=== PATIENT | female | born 1980 ===

== ENCOUNTER 2016-11-25 13:03 | Emergency (ER) | payer OTHER ==
[2016-11-25 13:03] VITALS: BMI 25.2
[2016-11-25 13:26] VITALS: BP 116/82; PULSE 98; RESP 20; TEMP 98.4; O2SAT 100
[2016-11-25] MEDS ORDERED: Sodium Chloride 0.9% 1,000 ML IV STA (13:50)
[2016-11-25 14:23] LABS: VENOUS BLOOD GAS BASE EXCESS 1.8 mmol/L (0.0-2.0); VENOUS BLOOD GAS PCO2 45 mmHg (40-60); VENOUS BLOOD PH 7.39 (7.32-7.43)
[2016-11-25 14:25] LABS: BASO % 0.2 % (0.0-2.0); EOS % 0.4 % (0.0-4.0); HEMATOCRIT 32.4 % (34.0-47.0); LYMPH # 2.1 K/uL (1.0-4.3); LYMPH % 20.6 % (20.0-40.0); MEAN CELL VOLUME 84.3 fl (81.0-99.0); MEAN CORPUSCULAR HEMOGLOBIN 27.5 pg (27.0-31.0); MEAN CORPUSCULAR HGB CONC 32.6 g/dL (33.0-37.0); MEAN PLATELET VOLUME 7.6 fl (7.2-11.7); MONO # 0.5 K/uL (0.0-0.8); MONO % 4.5 % (0.0-10.0); NEUT # 7.7 K/uL (1.8-7.0); NEUT % 74.3 % (50.0-75.0); NRBC % 0.1 % (0.0-0.0); RED CELL DISTRIBUTION WIDTH 12.9 % (11.5-14.5); WHITE BLOOD COUNT 10.3 K/uL (4.8-10.8)
[2016-11-25 14:30] LABS: ALKALINE PHOSPHATASE 138 U/L (38-126); ALT/SGPT 41 U/L (9-52); AST/SGOT 30 U/L (14-36); BILIRUBIN,TOTAL 0.3 mg/dl (0.2-1.3); BLOOD UREA NITROGEN 6 mg/dl (7-17); CARBON DIOXIDE 22 mmol/L (22-30); CHLORIDE 106 mmol/L (98-107); GFR AFRICAN-AMERICAN > 60; GLUCOSE,RANDOM 94 mg/dL (65-105); LIPASE 24 U/L (23-300); POTASSIUM 3.9 MMOL/L (3.6-5.0); RBC URINE 1 /hpf (0-3); SODIUM 141 mmol/l (132-148); TOTAL PROTEIN 7.2 G/DL (6.3-8.2); URINE BILIRUBIN SMALL (NEGATIVE); URINE BLOOD NEGATIVE (NEGATIVE); URINE COLOR YELLOW (YELLOW); URINE GLUCOSE (UA) NEG (Normal); URINE KETONE NEGATIVE (NEGATIVE); URINE LEUKOCYTE ESTERASE NEG Leu/uL (Negative); URINE PROTEIN NEGATIVE (NEGATIVE); URINE UROBILINOGEN 0.2-1.0 mg/dL (0.2-1.0); WBC URINE 1 /hpf (0-5)
--- NOTE | 2016-11-25 14:52 | ED PDOC ---
- Laboratory Results Result Diagrams: 11/25/16 14:15 11/25/16 14:15 - ECG O2 Sat by Pulse Oximetry: 100 Medical Decision Making Medical Decision Making: Time: 1430 Patient signed out by pending re-evaluation Labs demonstrate anemia, which is chronic c/w previous visits. MARLEY Sullivan (sp?) covering for Dr Aguillon and reviewed recent colonoscopy/ endoscopy. Pt has hemorrhoid, but otherwise no significant findings. Can be seen in office early next week. MARLEY Way as well. Reviewed previous charts, including previous CTs. Pt having pain but this is ongoing for a month, since recent surgery for ovarian cysts. Nausea as well. Symptomatic treatment for now. DW pt findings and plan of care. Scribe Attestation: Documented by Kia Hendrix acting as a scribe for Dixie Ann MD MD Scribe Attestation: All medical record entries made by the Scribe were at my direction and personally dictated by me. I have reviewed the chart and agree that the record accurately reflects my personal performance of the history, physical exam, medical decision making, and the department course for this patient. I have also personally directed, reviewed, and agree with the discharge instructions and disposition. Disposition - Clinical Impression Clinical Impression: Abdominal pain - POA Present On Arrival: None - Disposition Referrals: Henna PERSON,MD Ascenc[facility] [Medical Doctor] - 11/28/16 Disposition: Routine/Home Disposition Time: 15:45 Condition: STABLE Additional Instructions: BLAND DIET WITH PLENTY OF HYDRATING FLUIDS FOLLOW UP WITH DR AGUILLON EARLY NEXT WEEK Prescriptions: Dicyclomine [Bentyl] 20 mg PO BID PRN #30 tab PRN Reason: abdominal pain Saccharomyces Boulardi [Florastor] 500 mg PO BID #28 cap Ondansetron [Zofran] 4 mg PO Q8H PRN #30 tab PRN Reason: Nausea/Vomiting Instructions: Acute Abdominal Pain (ED), Syncope (ED), Rectal Bleeding (ED) Forms: [facility] School/Work Excuse
--- NOTE | 2016-11-26 10:54 | CARD ---
APPROVED REPORT EKG Measurement Heart [id number] <Conclusion> Sinus rhythm with marked sinus arrhythmia Otherwise normal ECG
== END 2016-11-25 16:23 | disposition home or self-care (01) ==
LOC: H.ER 13:03
DX: R10.9 Unspecified abdominal pain (principal)

== ENCOUNTER 2018-04-16 17:54 | Emergency (ER) | payer OTHER ==
[2018-04-16 19:11] VITALS: BMI 27.6
[2018-04-16] MEDS ORDERED: Betamethasone Soluspan 30 mg/5mL Inj Susp IM ONE (19:45)
--- NOTE | 2018-04-16 21:59 | OBDCSUM ---
Datetime: 04/16/2018 20:22 Discharged to, Provider: Home Follow up at, Provider: Primary [facility] Disch Instr Activity: Normal activity Disch Instr Diet: Regular Discharge Instructions, Provider: Routine instructions given Discharge Time: 04/16/2018 20:22 Follow up in weeks, Provider: Call and make appointment Disch Referrals: None Discharge Diagnosis Prov Other: Celestone administration for severe allergies
--- NOTE | 2018-04-16 21:59 | OBHP ---
Datetime: 04/16/2018 20:42 IP Adm Impression: , intrauterine IP Admit Plan: Observation/Evaluation; Discharge home Admit Comment, IP Provider: 37 yo at 21 wks w/ EDC 08/27/2018 by u/s who was sent from [facility], Dr. Treadwell, for a steroid injection for severe allergies. Pt reports that she gets a steroid injec tion every 4 months for severe allergies for the last 4 years. Pt reports that she gets bad sinus pr essure, INFANTE's and itch. Pt reports that her housekeeping manager was not comfortable giving her the steroid dose . Pt receives PN care w/ Dr. Purdy. PMH: Severe allergies PSH: L/s rt ov cystectomy 2016 Meds: singulair 10 mg daily PNVs All: amoxicillin and keflex cause hives and itch latex causes throat closes Soc hx: pt denies tobacco, alcohol, and illicit drug use [facility] [employer] Specialist hx: 14 x reg, denies STDs, +HPV w/ pap w/ this OB hx: 2000 SAB, no D_C 2000 , male, 6#7 at 36 wks, PTL PE: AFVSS Gen'l: Pt appears comfortable sitting up in bed A/P: 37 yo at 21 wks sent to L_D for Celestone shot for severe allergies Celestone shot given. Pt to f/u w/ Dr. Bear and housekeeping manager. General - PN: Normal FHR - Baseline A Provider: 130's EGA AdmitDate IP: 21.0 Vital Signs Provider: Reviewed IP Chief Complaint: Other
== END 2018-04-16 20:22 | disposition home or self-care (01) ==
LOC: H.EROB2 17:54
DX: O26.92 Pregnancy related conditions, unspecified, second trimester (principal); T78.40XA Allergy, unspecified, initial encounter; Z3A.21 21 weeks gestation of pregnancy
CPT/HCPCS: 96372; 99281; J0702

== ENCOUNTER 2018-08-10 06:52 | Emergency (ER) | payer OTHER ==
[2018-08-10 07:58] VITALS: BMI 28.5
[2018-08-10] MEDS ORDERED: Lactated Ringer's 1,000 ML IV SCH (08:00)
[2018-08-12 15:23] VITALS: BP 120/74; PULSE 69
== END 2018-08-10 11:30 | disposition home or self-care (01) ==
LOC: H.EROB2 06:52 → H.EROB 08:39 → H.EROB2 11:30
DX: O26.93 Pregnancy related conditions, unspecified, third trimester (principal); R10.2 Pelvic and perineal pain; Z3A.37 37 weeks gestation of pregnancy
CPT/HCPCS: 96360; 99283; J7120

== ENCOUNTER 2018-08-14 09:02 | Inpatient (IN) | payer OTHER ==
[2018-08-14 09:17] VITALS: BMI 29.0
[2018-08-14] MEDS ORDERED: Oxytocin 30 units/LR 500ML 30 UNITS/500 ML BAG IV ONE ×3 (09:17→09:46)
[2018-08-14] MEDS ORDERED: Lactated Ringer's 1,000 ML IV ONE (09:17)
[2018-08-14] MEDS ORDERED: OXYTOCIN/0.9 % NS 20 UNIT/1,000 ML BAG IV SCH (10:00)
[2018-08-14] MEDS: Lactated Ringer's 1,000 ML IV SCH ×2 (10:35→17:30)
[2018-08-14 11:03] LABS: BASO % 0.2 % (0.0-2.0); EOS % 0.2 % (0.0-4.0); HEMOGLOBIN 11.5 g/dL (12.0-16.0); LYMPH # 2.6 K/uL (1.0-4.3); LYMPH % 25.9 % (20.0-40.0); MEAN CELL VOLUME 92.6 fl (81.0-99.0); MEAN CORPUSCULAR HEMOGLOBIN 29.6 pg (27.0-31.0); MEAN PLATELET VOLUME 8.6 fl (7.2-11.7); MONO # 0.8 K/uL (0.0-0.8); MONO % 7.7 % (0.0-10.0); NEUT # 6.6 K/uL (1.8-7.0); NRBC % 0.4 % (0.0-0.0); RBC 3.89 Mil/uL (3.80-5.20); RED CELL DISTRIBUTION WIDTH 15.3 % (11.5-14.5); WHITE BLOOD COUNT 9.9 K/uL (4.8-10.8)
[2018-08-14] MEDS ORDERED: Lidocaine 1% Inj (20ml) ONE (23:16)
[2018-08-14] MEDS ORDERED: Benzocaine/Menthol SPRAY TOP PRN (23:19)
[2018-08-15 10:57] LABS: BASO % 0.3 % (0.0-2.0); EOS % 0.4 % (0.0-4.0); HEMOGLOBIN 10.2 g/dL (12.0-16.0); LYMPH # 2.8 K/uL (1.0-4.3); LYMPH % 22.3 % (20.0-40.0); MEAN CELL VOLUME 92.7 fl (81.0-99.0); MEAN CORPUSCULAR HEMOGLOBIN 29.2 pg (27.0-31.0); MEAN CORPUSCULAR HGB CONC 31.5 g/dL (33.0-37.0); MEAN PLATELET VOLUME 8.1 fl (7.2-11.7); MONO # 0.9 K/uL (0.0-0.8); MONO % 7.4 % (0.0-10.0); NEUT # 8.7 K/uL (1.8-7.0); NEUT % 69.6 % (50.0-75.0); NRBC % 0.1 % (0.0-0.0); RBC 3.48 Mil/uL (3.80-5.20); RED CELL DISTRIBUTION WIDTH 15.5 % (11.5-14.5); WHITE BLOOD COUNT 12.4 K/uL (4.8-10.8)
--- NOTE | 2018-08-15 18:26 | OBPPN ---
Datetime: 08/15/2018 18:22 PP Pain Prov: Within normal limits PP Nausea Prov: Denies PP Flatus Prov: Yes PP BM Prov: No PP Breasts Prov: Normal PP Heart Prov: Normal PP Lungs Prov: Normal PP Abdomen/Uterus Prov: Normal PP Lochia Prov: Normal PP Vulva/Perineum Prov: Normal PP CVA Tenderness Prov: Normal PP Extremities Prov: Normal PP Progress Prov: Normal PP Impression Prov: Normal progression PP Plan Prov: Continue present management PP Progress Note Prov: stable ppd1 continue present care IP PP Procedures: None Vital Signs Provider PP: Reviewed; Within Normal Limits
[2018-08-16 07:58] VITALS: RESP 20
[2018-08-16] MEDS ORDERED: Benzocaine/Menthol SPRAY TOP PRN (08:35)
[2018-08-16] MEDS ORDERED: Betamethasone Soluspan 30 mg/5mL Inj Susp IM ONE ×2 (08:36→08:37)
[2018-08-16] MEDS ORDERED: Measles, Mumps, and Rubella 0.5 ML VIAL SC ONE (08:38)
--- NOTE | 2018-08-16 08:39 | OBDCSUM ---
Datetime: 08/16/2018 08:35 Discharged to, Provider: Home Follow up at, Provider: Disch Instr Activity: Bedrest; May be up to bathroom; May be up for meals; May Shower Disch Instr Diet: Regular Discharge Instructions, Provider: Routine instructions given Discharge Diagnosis, Provider: Term Delivered Discharge Time: 08/16/2018 08:35 Follow up in weeks, Provider: 1week in office Disch Referrals: None Disch Activity Restrictions: No exercising; No lifting; No driving; Minimize walking; Minimize stair -climbing; No sexual activity; Nothing in vagina - Jud, tampons, douche Contraception after Delivery: Undecided
[2018-08-16 08:52] VITALS: BP 138/75; PULSE 67; TEMP 98; O2SAT 99
== END 2018-08-16 14:00 | disposition home or self-care (01) | DRG 886 ==
LOC: H.EROB2 09:02 → H.L&D 09:17 → H.OB/GYN 08-15 01:15
PROVIDERS: ADMIT Specialist; ATTEND Specialist
PROC: 4A1HXCZ Monitoring of Products of Conception, Cardiac Rate, External Approach (ICD-10-PCS; principal; 2018-08-14)
PROC: 3E0234Z Introduction of Serum, Toxoid and Vaccine into Muscle, Percutaneous Approach (ICD-10-PCS; 2018-08-16)
DX: O62.3 Precipitate labor (principal); O36.5930 Maternal care for other known or suspected poor fetal growth, third trimester, not applicable or unspecified; Z3A.38 38 weeks gestation of pregnancy; O69.81X0 Labor and delivery complicated by cord around neck, without compression, not applicable or unspecified; Z23 Encounter for immunization